=== PATIENT | female | born 1985 | race African-American/Black ===

== ENCOUNTER 2020-10-31 14:14 | Outpatient (REF) | payer MEDICAID, SELFPAY ==
--- NOTE | 2020-10-31 | US_ITS ---
EXAMINATION: OBSTETRICAL ULTRASOUND, FIRST TRIMESTER HISTORY: 35-year-old with secondary amenorrhea LMP: Uncertain COMPARISON: 03/20/2020 TECHNIQUE: Real time transabdominal imaging with color and M-mode Doppler. FINDINGS: A single, live IUP CRL of 70.2 mm c/w 13.2wks is noted. Heart Rate: 152 beats per minute. Both maternal ovaries are seen and appear normal. GESTATIONAL AGE: 1. GA from LMP: N/A wks 2. GA from AUA: 13.2 wks ESTIMATED DATE OF DELIVERY: 1. MIGUEL from LMP: N/A 2. MIGUEL from AUA: 05/06/2021 US/US OB <= 14 weeks fetus IMPRESSION: 1. A single live IUP with CRL consistent with 13.2 weeks of gestation. Based on today's examination, the best MIGUEL is 05/06/2021. 2. Normal ovaries 3. No free fluid in the cul-de-sac
== END 2020-10-31 14:15 | disposition home or self-care (01) ==
LOC: HO.HMGCX 14:14
PROVIDERS: PCP Nurse Practitioner Family; Visit Provider Advanced Practice Midwife
DX: Z36.87 Encounter for antenatal screening for uncertain dates (principal)
CPT/HCPCS: 76801

== ENCOUNTER → 2021-10-14 13:15 | Outpatient (REF) | payer MEDICAID, SELFPAY | LOC: HO.CARD 13:15 | PROVIDERS: PCP General Practice; Referring Provider General Practice; Visit Provider Internal Medicine | DX: R00.2 Palpitations (principal); R06.02 Shortness of breath; U07.1 COVID-19 | CPT/HCPCS: 93005; 99202 ==

== ENCOUNTER 2022-05-18 03:50 | Emergency (ER) | payer MEDICAID, SELFPAY ==
[2022-05-18 04:20] VITALS: BP 137/80; PULSE 94; RESP 16; TEMP 37.2; O2SAT 96; BMI 27.8
[2022-05-18] MEDS: diphenhydrAMINE HCL 50 MG/ML VIAL IM (04:51)
--- NOTE | 2022-05-18 05:06 | ED_ITS ---
HPI - General Adult General Chief complaint: Allergic Reaction Stated complaint: legs, arms, neck rash, itchy Time Seen by Provider: 05/18/22 04:43 Source: patient Limitations: no limitations History of Present Illness HPI narrative: This is a 36-year-old female who complains of hives on her thighs and generalized pruritus which began this morning. The patient is on Bactrim for UTI. She has been on it for about 5 days, though she had been on a previous to this recently and was treated again for UTI. She states she also was prescribed amoxicillin for a tooth which she needs to have old but has not filled that yet. Patient denies any tongue or lip swelling, throat tightness, shortness of breath, wheezing. She denies any gum swelling, does have dental pain. Related Data Previous Rx's Medication Instructions Recorded diphenhydramine HCl 25 mg capsule 25 - 50 mg PO Q6-8H PRN allergic 05/18/22 reaction #30 caps Allergies Allergy/AdvReac Type Severity Reaction Status Date / Time Sulfa (Sulfonamide Allergy Rash Verified 05/18/22 05:20 Antibiotics) Review of Systems Review of Systems: Yes all other systems are reviewed and are negative Constitutional: Constitutional: Reports as per HPI and Denies fever(s) Eyes: Eyes: Reports as per HPI and Reports no additional eye complaints ENT: Reports system reviewed and no additional complaints, except as documented, Reports as per HPI, Denies nasal congestion, Denies nasal discharge and Denies sore throat Comments: Dental pain Cardiovascular: Cardiovascular: Reports as per HPI, Denies chest pain and Denies dyspnea Respiratory: Respiratory: Reports as per HPI, Denies cough and Denies dyspnea Gastrointestinal: Gastrointestinal: Reports as per HPI, Denies abdominal pain, Denies diarrhea and Denies vomiting Genitourinary: Genitourinary: Reports as per HPI, Denies hematuria, Denies urinary frequency and Denies dysuria Musculoskeletal: Musculoskeletal: Reports no additional musculoskeletal complaints Integumentary/Breasts: Skin/Breast: Reports as per HPI and Reports rash Comments: Pruritus Psychiatric: Psychiatric: Reports no additional psychiatric complaints Endocrine: Endocrine: Reports no additional endocrine complaints and Reports as per HPI Hematologic/Lymphatic: Hematologic/Lymphatic: Reports no additional hematologic/lymphatic complaints, Reports as per HPI and Reports other (No peripheral edema) [facility] Past Medical History Surgical History (Updated 10/14/21 @ 13:34 by REECE Caballero) No pertinent past surgical history Family History Family History (Updated 10/14/21 @ 13:34 by REECE Caballero) Father Heart disease Mother Heart disease Social History Social History (Updated 10/14/21 @ 13:34 by REECE Caballero) Patient Tobacco Use Status: Never used Tobacco Advance Directives: No Physical Exam ED Vital Signs: Vital Signs - 24 hr 05/18/22 04:20 Temperature 98.9 F Pulse Rate 94 Respiratory Rate 16 Blood Pressure 137/80 Pulse Oximetry 96 Oxygen Delivery Method Room Air BMI result Body Mass Index 27.8 Const General: no acute distress Orientation/consciousness: patient oriented x3 HENMT Head: Yes normal to inspection General nose exam: Normal external nose present Mouth: moist mucous membranes Throat: Yes posterior oropharynx normal, Yes tonsils normal and Yes uvula midline Eyes Eyelids: Yes eyelids normal Conjunctivae: conjunctivae normal Pupils: Equal, round and reactive pupils present Neck Neck: Yes supple Resp Effort & Inspection: normal respiratory effort Auscultation: clear to auscultation bilaterally Cardio Rate: regular rate Rhythm: regular rhythm Heart sounds: S1 normal heart sound present, S2 normal heart sound present, no gallops, no murmurs and no rubs GI Inspection: No distended Palpation (GI): Soft to palpation and nontender Auscultation: normal bowel sounds Skin Other: Mild urticaria General skin exam: other (Warm and dry) Neuro General: patient oriented x3 and CN's II-XI intact bilaterally Cranial nerves: Yes Equal, round and reactive pupils present Extrem General: Yes no pedal edema Psych Affect: normal affect Attitude: cooperative Medical Decision Making [facility] Narrative Medical decision making narrative: Patient was treated with Benadryl 50 mg IM and had improvement in her symptoms, noted that the pruritus went away. Patient is advised to stop the trimethoprim/sulfamethoxazole and consider herself sulfa allergic. She can start the amoxicillin for her dental pain. Given that she has already had the Bactrim for 5 days, she can have already had sufficient antibiotics for UTI. Recommend follow-up with primary care physician for repeat urinalysis in a week Discharge Plan Discharge Clinical Impression: Allergic reaction, Urticaria Patient Disposition: Home, Self-Care Instructions: Urticaria (ED), Antibiotic Medication Allergy (ED) Additional Instructions: Stop taking the trimethoprim/sulfamethoxazole, and consider yourself allergic to sulfa medications. Start the amoxicillin as prescribed previously. Use the diphenhydramine as prescribed Prescriptions: New diphenhydramine HCl 25 mg capsule 25 - 50 mg PO Q6-8H PRN (Reason: allergic reaction) Qty: 30 0RF Interventions: ED Discharge Assessment Last Done: 05/18/22 05:20 Discharge Date/Time: 05/18/22 05:40
--- NOTE | 2022-05-18 05:22 | PC.NURSE ---
pt reports good effect from benadryl. decreased itching/ pt ambulatory upon d/c with no complaints
== END 2022-05-18 05:40 | disposition home or self-care (01) ==
LOC: HO.ED 05:22
PROVIDERS: Emergency Provider Emergency Medicine
DX: L50.0 Allergic urticaria (principal)
CPT/HCPCS: 96372; 99284; J1200

== ENCOUNTER 2024-07-24 18:36 | Outpatient (REF) | payer MEDICAID, SELFPAY ==
[2024-07-25 12:17] LABS: CT PCR NOT DETECTED (Not Detect.); NG PCR NOT DETECTED (Not Detect.)
[2024-07-25 13:53] LABS: Bacterial Vaginosis PCR POSITIVE (Negative); Candida Group PCR NOT DETECTED (Not Detect); Candida glab krusei PCR NOT DETECTED (Not Detect); Trichomonas vaginalis PCR NOT DETECTED (Not Detect)
== END 2024-07-24 18:37 | disposition home or self-care (01) ==
LOC: HO.HHCLNP 18:36
PROVIDERS: Visit Provider Nurse Practitioner Family
DX: N89.8 Other specified noninflammatory disorders of vagina (principal)
CPT/HCPCS: 0352U; 87491; 87591

== ENCOUNTER 2025-07-09 14:58 | Outpatient (REF) | payer MEDICAID, SELFPAY ==
[2025-07-10 12:59] LABS: Bacterial Vaginosis PCR NEGATIVE (Negative); Candida Group PCR DETECTED (Not Detect); Candida glab krusei PCR NOT DETECTED (Not Detect); Trichomonas vaginalis PCR NOT DETECTED (Not Detect)
[2025-07-10 13:30] LABS: CT PCR NOT DETECTED (Not Detect.); NG PCR NOT DETECTED (Not Detect.)
== END 2025-07-09 14:59 | disposition home or self-care (01) ==
LOC: HO.LNP 14:58
PROVIDERS: Visit Provider Internal Medicine
DX: Z20.2 Contact with and (suspected) exposure to infections with a predominantly sexual mode of transmission (principal); L72.0 Epidermal cyst; N89.8 Other specified noninflammatory disorders of vagina
CPT/HCPCS: 81515; 87491; 87591

== ENCOUNTER 2025-08-27 11:15 | Outpatient (AMB) | payer MEDICAID, SELFPAY ==
--- NOTE | 2025-08-27 11:23 | MHC.OFFVIS ---
Vital Signs 08/27/25 11:29 Height 5 ft 2 in Weight 175 lb BMI 32.0 BP 143/83 H Blood Pressure Location Rt radial Position Sitting Pulse 92 Intake Visit Reasons: Epidermoid cyst of scalp x3 Intake Note: Patient referred by PCP Dr. Rissa Talavera, for assessment of cysts X3 on scalp. Patient c/o: painful, bothersome. Had cysts removed yrs ago but they grew back. Creative/Art Director Required: No Accompanied by: Self / Same As Patient Allergies Sulfa (Sulfonamide Antibiotics) Allergy (Verified 08/27/25 11:27) Rash Medication List - Last Reconciled 08/27/25 by Abundio Davis MD No Known Home Meds HPI Comments Details: Patient reports a history of Pilar cyst excision x3 in the past. She notes that 2 of them have returned and they become large and bothersome. She desires repeat excision of these. She denies any other trauma or instrumentation to the region. [facility] Surgical History (Updated 10/14/21 @ 13:34 by REECE Caballero) No pertinent past surgical history Family History (Updated 10/14/21 @ 13:34 by REECE Caballero) Father Heart disease Mother Heart disease Social History (Updated 10/14/21 @ 13:34 by REECE Caballero) Patient Tobacco Use Status: Never used Tobacco Review of Systems Const All systems reviewed & are unremarkable except as noted in HPI and below Physical Exam Vital Signs: Last Vital Signs Pulse 92 08/27/25 11:29 BP 143/83 H 08/27/25 11:29 BMI result Body Mass Index 32.0 Const General: cooperative, healthy appearing and comfortable Orientation/consciousness: oriented to person, oriented to place and oriented to time HEENT Head: Yes normal to inspection and Yes normocephalic Head images:  1. 3-4 cm cyst 2. 2-3 cm cyst Eyes Pupils: Equal, round and reactive pupils present EOM: EOMs intact bilaterally Neck Neck: Yes normal visual inspection Chest Chest palpation & inspection: normal inspection of the chest Resp Effort & Inspection: normal respiratory effort and able to speak in complete sentences Cardio Rate: regular rate Rhythm: regular rhythm GI Inspection: Yes normal to inspection General: Yes no CVA tenderness Back/Spine/Pelvis Back: no CVA tenderness Cervical Spine: normal cervical lordosis Thoracic/Lumbar Spine: thoracic and lumbar spine normal to inspection Neuro General: oriented to person, oriented to place and oriented to time Cranial nerves: Yes CN's II-XII intact bilaterally and Yes Equal, round and reactive pupils present Assessment & Plan Assessment & Plan (1) Pilar cyst of scalp: Code(s): L72.11 - Pilar cyst Category: Medical Plan: I told the patient I felt that excision of her 2 pilar cysts was reasonable. We discussed the nature of the procedure as well as the inherent risks involved. These include but are not limited to bleeding, infection, recurrence, scarring, chronic pain. She indicated that she understood. She told me that she accepted the risks and still wished to proceed with surgery. Coding Level of Care Code New Pt Level 3 (93274) Diagnoses Pilar cyst of scalp L72.11 Time Spent (min) 30
[2025-08-27 11:29] VITALS: BP 143/83; PULSE 92; BMI 32.0
--- OUTSIDE RECORDS SUMMARY | 2025-08-27 14:54 | XMS_ITS | Clinical Summary ---
Author Organization [address] [place] [address] [place] [phone] Phone Care Team Providers Care Stereoptician Name Role Phone Wilbert Brown MD Primary Care Provider Allergies No known active allergies Active Problems No known active problems Encounters Date Type Department Care Team Description 07/11/2025 3:48 PM EDT - 07/11/2025 4:35 PM EDT Emergency [facility] Emergency [address] [place] [address] Trung Anaya MD Concussion without loss of consciousness, initial encounter (Primary Dx) Discharge Disposition: Home or Self Care from Last 3 Months Medical History Medical History Date Comments No known health problems Social History Tobacco Use Types Packs/Day Years Used Date Smoking Tobacco: Never Smokeless Tobacco: Never Tobacco Cessation:Counseling Given: Not Answered Comments Unknown Sex and Gender Information Value Date Recorded Sex Assigned at Not on file Legal Sex Female 1:13 PM EST Gender Identity Not on file Sexual Orientation Not on file Obstetrics History Last Filed Vital Signs Vital Sign Reading Time Taken Comments Blood Pressure 145/96 07/11/2025 3:43 PM EDT Pulse 103 07/11/2025 3:43 PM EDT Temperature 36.9 C (98.4 F) 07/11/2025 3:43 PM EDT Respiratory Rate 16 07/11/2025 3:43 PM EDT Oxygen Saturation 100% 07/11/2025 3:43 PM EDT Inhaled Oxygen Concentration - - Weight 79.4 kg (175 lb) 07/11/2025 3:39 PM EDT Height 154.9 cm (5' 1 ) 07/11/2025 3:39 PM EDT Body Mass Index 33.07 07/11/2025 3:39 PM EDT Plan of Treatment Health Maintenance Due Date Last Done Comments Breast Cancer Screening 1985 Pneumococcal Vaccine: Pediatrics (0 to 5 Years) and At-Risk Patients (6 to 49 Years) (1 of 2 - PCV) 2004 Cervical Cancer Screening: Pap Smear 2006 HPV Vaccines (1 - 3-dose SCDM series) 2012 HIV Screening 08/31/2022 Hepatitis C Screening 08/31/2022 Social Influencers of Health Screening 08/31/2022 Depression Screening 10/03/2024 COVID-19 Vaccine ( season) 2025 Influenza Vaccine (#1) 2025 09/13/2019, 2016 DTaP,Tdap,and Td Vaccines (8 - Td or Tdap) 08/15/2027 08/15/2017, 09/17/1999, 07/25/1990, Additional history exists RSV Immunization Adult Patients (1 - 1-dose 75+ series) 2060 HIB Vaccines Completed 10/14/1988 IPV Vaccines Completed 07/25/1990, 02/01, 01/04/1986, Additional history exists MMR Vaccines Completed 06/23/1995, 02/19/1987 Hepatitis B Vaccines Completed 07/13/2000, 11/20/1999, 09/17/1999 Hepatitis A Vaccines Aged Out No long er eligible based on patient's age to complete this topic Meningococcal ACWY Vaccine Aged Out N o longer eligible based on patient's age to complete this topic Meningococcal B Vaccine Aged Out No l onger eligible based on patient's age to complete this topic RSV Immunization Patients Under 20 months Aged Out No longer eligible based on patient's age to complete this topic Varicella Vaccines Aged Out No longer eligible based on patient's age to complete this topic Insurance MEDICAID - [place] Care Teams Stereoptician Relationship Specialty Start Date End Date Wilbert Brown MD [address] [facility], [address] PCP - General 03/24/10
--- OUTSIDE RECORDS SUMMARY | 2025-08-27 14:54 | XMS_ITS | Encounter Summary ---
Author Organization [employer] Address [address] [facility] [address] [place] [address] Care Team Providers Care Checkout Supervisor Name Role Phone Becky Mai MD Primary Care Provider [phone] Encounter Details Date Type Department Care Team (Late st Contact Info) Description 07/25/2024 Orders Only [facility] [address], [place] [phone] Araseli Bernal FNP [address], [place] [phone] Social History Tobacco Use Types Packs/Day Years Used Date Smoking Tobacco: Never Passive Smoke Exposure: Never Smokeless Tobacco: Never Alcohol Use Standard Drinks/Week Comments Never 0 (1 standard drink = 0.6 oz pur e alcohol) Comments Unknown Sex and Gender Information Value Date Recorded Sex Assigned at Female 08/02/2022 10:15 AM EDT Legal Sex Female 10:15 AM EDT Gender Identity Female 08/02/2022 10:15 AM EDT Sexual Orientation Choose not to disclose 2021 10:15 AM EDT documented as of this encounter Plan of Treatment Not on file documented as of this encounter Visit Diagnoses Not on filedocumented in this encounter Care Teams Checkout Supervisor Relationship Specialty Start Date End Date Becky Mai MD [address] [place] [address] PCP - General Family Medicine 06/02/20 documented as of this encounter
--- OUTSIDE RECORDS SUMMARY | 2025-08-27 14:54 | XMS_ITS | Clinical Summary ---
Author Organization [employer] Address [address] [facility] 7t [place] [address] Care Team Providers Care Sword Swallower Name Role Phone Becky Mai MD Primary Care Provider [phone] Allergies No known active allergies Medications No known medications Active Problems Problem Noted Date Diagnosed Date Epidermoid cyst 07/09/2025 Vaginal odor 07/09/2025 Assessment & Plan (07/09/2025 4:25 PM EDT): Patient will be contacted with results Vaginal discharge during 03/26/2023 Assessment & Plan (03/26/2023 9:21 PM EDT): Pt w scant vaginal discharge and per pt abnormal smell. No vaginal bleeding. Nl mvmts per pt. No sx. -Here urine dipstick is neg w no blood, neg protein, no nitrates, nor LE. -Pt obtained vaginal sample (self-collected), sent today for Sure Swab testing. -Start empirically intravaginal metronidazole gel for 5 d -will call pt if neg test to stop antibiotic -Advise pt f u w her OBGYN -Alarm signs and sx discussed Elevated blood pressure reading 03/26/2023 Assessment & Plan (03/26/2023 9:27 PM EDT): Initially BP was in 150s, but pt was visibly agitated due to conversation on the phone which she didn't detail, however after rechecking manually, was BP manually RA 142/80 AND LA 138/80 -Rechecked 136/80 Pt denies having elevated BP readings at drs apptmts -Advise to f up w her OBGYN to continue following BP -Pt has apt w her CUTTING MACHINE OPERATOR in 04/14/2023 But advised to scheduled earlier visit to f BP -HR improved after recheck 01/31/2023 Anxiety 01/31/2023 Reflux esophagitis 01/31/2023 Sickle cell trait 01/31/2023 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 Treatment options are limited. History of severe acute resp iratory syndrome coronavirus 2 (SARS-CoV-2) disease 06/11/2021 Gastroenteritis 07/04/2018 Resolved Problems Problem Noted Date Diagnosed Date Resolved Date Acute contact otitis externa 09/24/2022 01/31/2023 Encounters Date Type Department Care Team Description 07/11/2025 Results Follow-Up [facility] [address] [place] [phone] Marina Liang MD Bacterial Vaginosis Panel, Chlamydia/N. Gonorrhoeae RNA, TMA, Vaginal 07/11/2025 Orders Only [facility] [address] [place] [id number] Marina Liang MD Yeast infection (Primary Dx) 07/09/2025 2:40 PM EDT Office Visit [facility] [address] [place] [phone] Marina Liang MD Vaginal odor (Primary Dx); Epidermoid cyst 07/09/2025 Travel from Last 3 Months Immunizations Immunization Administration Dates Next Due DTaP, 5 pertussis antigens 07/25/1990,,03/06/1986,1985,1985 Hep B, Adolescent or Pediatric 07/13/2000,1999,09/17/1999 Hib ([facility]) 10/14/1988 Influenza injectable quadriv alent IIV4 with preservative 08/15/2017 Influenza injectable quadriv alent preservative free 09/13/2019 MMR 06/23/1995,02/19/1987 OPV, Trivalent 07/25/1990, 7,01/04/1986,1985 TD (adult), 2 Lf tetanus tox oid, preservative free, adsorbed 09/17/1999 Tdap 08/15/2017 Social History Tobacco Use Types Packs/Day Years Used Date Smoking Tobacco: Never Passive Smoke Exposure: Never Smokeless Tobacco: Never Tobacco Cessation:Counseling Given: Not Answered Alcohol Use Standard Drinks/Week Comments Never 0 (1 standard drink = 0.6 oz pur e alcohol) Comments Unknown Sex and Gender Information Value Date Recorded Sex Assigned at Female 08/02/2022 10:15 AM EDT Legal Sex Female 10:15 AM EDT Gender Identity Female 08/02/2022 10:15 AM EDT Sexual Orientation Choose not to disclose 2021 10:15 AM EDT Last Filed Vital Signs Vital Sign Reading Time Taken Comments Blood Pressure 138/84 07/09/2025 4:23 PM EDT Pulse 110 07/09/2025 2:21 PM EDT Temperature 35.2 C (95.3 F) 07/09/2025 2:21 PM EDT Respiratory Rate 16 07/09/2025 2:21 PM EDT Oxygen Saturation 97% 07/09/2025 2:21 PM EDT Inhaled Oxygen Concentration - - Weight 90.2 kg (198 lb 12.8 oz) 07/09/2025 2:21 PM EDT Height 154.9 cm (5' 1 ) 07/09/2025 2:21 PM EDT Body Mass Index 37.56 07/09/2025 2:21 PM EDT Plan of Treatment Health Maintenance Due Date Last Done Comments Depression Screening 1985 HIV Screening 1985 Lipid Panel 1985 SDOH Screening 1985 Disability Screening 1985 Alcohol/Substance Use Screening 1997 Family Planning (PISQ) 2000 HPV Vaccines (1 - 3-dose series) 2000 Hepatitis C Screening 2003 COVID-19 Vaccine ( season) 2025 Influenza Vaccine (#1) 2025 09/13/2019, 2016 Mammogram 2025 03/20/2020 Tobacco Screening 07/09/2026 07/09/2025 Cervical Cancer Screening 07/10/2026 HPV/Cotest 07/10/2026 07/10/2021 Pap Smear 07/10/2026 07/10/2021 DTaP/Tdap/Td Vaccines (8 - Td or Tdap) 05/10/2033 05/10/2023, 08/15/2017, 09/17/1999, Additional history exists Zoster Vaccines (1 of 2) 2035 RSV Patients and Patients Aged 60 years or older (1 - 1-dose 75+ series) 2060 HIB Vaccines Completed 10/14/1988 IPV Vaccines Completed 07/25/1990, 02/01, 01/04/1986, Additional history exists Hepatitis B Vaccines Completed 07/13/2000, 11/20/1999, 09/17/1999 Hepatitis A Vaccines Aged Out No long er eligible based on patient's age to complete this topic Meningococcal B Vaccine Aged Out No l onger eligible based on patient's age to complete this topic Meningococcal Vaccine Aged Out No josé manuel anderson eligible based on patient's age to complete this topic Pneumococcal Vaccine: Pediatrics (0 to 5 Years) and At-Risk Patients (6 to 49) Years Aged Out No longer eligible based on patient's age to complete this topic RSV under 20 months Aged Out No longe r eligible based on patient's age to complete this topic Rotavirus Vaccines Aged Out No longer eligible based on patient's age to complete this topic Procedures Procedure Name Priority Date/Time Associated Diagnosis Comments CHLAMYDIA/N. GONORRHOEAE RNA, TMA, UROGENITAL Routine 07/09/2025 2:58 PM EDT Epidermoid cyst Vaginal odor BACTERIAL VAGINOSIS PANEL Routine 07/09/2025 2:58 PM EDT Epidermoid cyst Vaginal odor HPV MRNA E6/E7 REFLEX TO HPV 16, 18/45 Routine 07/10/2021 4:16 PM EDT THINPREP IMAGING SYSTEM PAP Routine 07/10/2021 4:16 PM EDT BI MAMMOGRAM DIAGNOSTIC BILATERAL Routine 03/20/2020 11:34 AM EDT from Last 3 Months or Most Recently Relevant to Health Maintenance Results * (ABNORMAL) Bacterial Vaginosis Panel (07/09/2025 2:58 PM EDT) Pathologist [facility] TRICHOMONAS VAGINALIS DETECTION BY PCR NOT DETECTED Not Detect [facility] BACTERIAL VAGINOSIS DETECTION BY PCR NEGATIVE Negative [facility] Comment:The BV organism targ ets of the Xpert Xpress MVP test can becommensal in women; Xpert Xpress MVP positive results forbacterial vaginosis should be considered in conjunction withother clinical and patient information to determine thedisease status. Organisms that are not detected by the XpertXpress MVP test have also been reported to be associatedwith BV and aerobic vaginitis.The Xpert Xpress MVP test performance has not been evaluatedin patients under the age of 14. KAYLIN GROUP DETECTION BY PCR DETECTED(A) Not Detect [facility] Kaylin glab krusei PCR NOT DETECTED Not Detect [facility] Swab Vaginal structure / Unknown 07/09/2025 2:58 PM EDT 07/10/2025 11:52 AM EDT Marina Talavera MD LAB MICROBIOLOGY - [facility] ORDERABLES Final Result [facility] [address] [place] [phone] * Chlamydia/N. Gonorrhoeae RNA, TMA, Vaginal (07/09/2025 2:58 PM EDT) Pathologist [facility] CT PCR NOT DETECTED Not Detect. [facility] Comment:A not detected test result does not exclude the possibilityof infection because test results can be affected byimproper specimen collection, concurrent antibiotic therapy,or the number of organisms in the specimen which may bebelow the sensitivity of the test. As with many diagnostictests, results from the Xpert CT/NG assay should beinterpreted in conjunction with other laboratory andclinical data available to the clinician.Xpert CT/NG performance has not been evaluated in patientsless than 14 years of age. The assay should not be used forthe evaluationof suspected sexual abuse or for other medico-legalindications. Additional testing is recommended in anycircumstance when false positive or false negative resultscould lead to adverse medical, social or psychologicalconsequences. NG PCR NOT DETECTED Not Detect. [facility] Comment:A not detected test result does not exclude the possibilityof infection because test results can be affected byimproper specimen collection, concurrent antibiotic therapy,or the number of organisms in the specimen which may bebelow the sensitivity of the test. As with many diagnostictests, results from the Xpert CT/NG assay should beinterpreted in conjunction with other laboratory andclinical data available to the clinician.Xpert CT/NG performance has not been evaluated in patientsless than 14 years of age. The assay should not be used forthe evaluationof suspected sexual abuse or for other medico-legalindications. Additional testing is recommended in anycircumstance when false positive or false negative resultscould lead to adverse medical, social or psychologicalconsequences. Swab (Vaginal Swab) 07/09/2025 2:58 PM EDT 07/10/2025 11:52 AM EDT Marina Talavera MD LAB MICROBIOLOGY - [facility] ORDERABLES Final Result [facility] [address] [place] [phone] * THINPREP TIS PAP (07/10/2021 4:16 PM EDT) Clinical Information: None given [facility] COMMENT SEE COMMENT [facility] Comment: EXPLANATORY NOTE: The Pap is a screening test for cervical cancer. It is not a diagnostic test and is subject to false negative and false positive results. It is most reliable when a satisfactory sample, regularly obtained, is submitted with relevant clinical findings and history, and when the Pap result is evaluated along with historic and current clinical information. COMMENT: This Pap test has been evaluated with computer assisted technology. [facility] Nail Expert : SEE COMMENT [facility] Comment: RK, CT(ASCP) CT screening location: [place] [address] Infection Shift in vaginal jasiel suggestive of bacterial vaginosis. [facility] Interpretation/R esult: Negative for intraepithelial lesion or malignancy. [facility] LMP: NONE [facility]IVEN [facility] Prev. BX: NONE [facility]IVEN [facility] Prev. PAP: NONE GIVEN [facility] SOURCE: None given [facility] Statement Of Adequacy: SEE COMMENT [facility] Comment: Satisfactory for evaluation. Endocervical/transformation zone component present. Age and/or menstrual status not provided 07/10/2021 4:16 PM EDT Becky Mai MD LAB PATHOLOGY ORDERABLES Final Result Performing Organization Address [facility] Co de Phone Number [facility] [address] * HPV mRNA E6/E7 REFLEX TO HPV 16, 18/45 (07/10/2021 4:16 PM EDT) HPV nRNA E6/E7 Not Detected Not Detected [facility] Comment: Methodology: Icer Hand-Mediated Amplification This assay detects E6/E7 viral messenger RNA (mRNA) from 14 high-risk HPV types (16,18,31,33,35,39,45,51,52,56,58,59,66,68). The analytical performance characteristics of this assay have been determined by [employer]. The modifications have not been cleared or approved by the FDA. This assay has been validated pursuant to the CLIA regulations and is used for clinical purposes. For additional information, please refer to http://education.[employer].Wylio/faq/BWT333x9 (This link if provided for information/ educational purposes only.) 07/10/2021 4:16 PM EDT Becky Mai MD LAB CYTOLOGY ORDERABLES Final Result Performing Organization Address [facility] Co de Phone Number [facility] [address] * 3D BILATERAL DIAGN MAMMO 1 (03/20/2020 11:34 AM EDT) Anatomical Region Laterality Modality Breast Bilateral Mammography 03/20/2020 11:3 4 AM EDT Narrative 03/20/2020 11:36 AM EDT Refer to the Notes tab for result details [facility] Procedure: 3D BILATERAL DIAGN MAMMO 1 Procedure Note Provider, MD [place] - 12/25/2022 Refer to the Notes tab for result details [facility] Procedure: 3D BILATERAL DIAGN MAMMO 1 Konstantin Soto FISCAL OFFICER IMG BI PROCEDURES Final Result from Last 3 Months or Most Recently Relevant to Health Maintenance Insurance C3 Care Teams Sword Swallower Relationship Specialty Start Date End Date Becky Mai MD [address] [place] [phone] PCP - General Family Medicine 06/02/20
== END 2025-08-27 11:35 | disposition home or self-care (01) ==
LOC: HO.HGS 11:15
PROVIDERS: PCP Internal Medicine; Visit Provider Surgery
DX: L72.11 Pilar cyst (principal)
CPT/HCPCS: 99203

== ENCOUNTER → 2025-08-27 11:15 | Outpatient (BNVA) | payer MEDICAID, SELFPAY | PROVIDERS: PCP Internal Medicine; Visit Provider Surgery | DX: Z01.818 Encounter for other preprocedural examination (principal); L72.11 Pilar cyst | CPT/HCPCS: 99202 ==

== ENCOUNTER 2025-09-13 13:46 | Outpatient (REF) | payer MEDICAID, SELFPAY ==
[2025-09-13 13:52] VITALS: BP 138/79; PULSE 93; RESP 18; O2SAT 98; BMI 31.1
--- NOTE | 2025-09-13 14:35 | W.PM.OPN ---
Operative Note Operative Note Date of Service: 09/13/25 Narrative: Preoperative diagnosis pilar cyst x2 Postoperative diagnosis pilar cyst x2 Procedure performed excision of pilar cyst x2 Anesthesia local infiltration Specimen: Pilar cyst approximately 2 cm in diameter and another pilar cyst approximately 1 cm in diameter Surgeon: Abundio Davis MD The patient was identified and time-out was performed. Her scalp was then prepped and draped in standard sterile fashion. After this was done approximately 20 cc of 0.25% Marcaine with epinephrine were infused around the skin and soft tissues of two previously identified and marked pilar cysts. Over the cyst stab incision was created 15. Blade and a pearly round cystic structure was completely mobilized from the surrounding soft tissue attachments with a combination of blunt and sharp dissection at each incision site. Both cysts were mobilized and passed off table as a specimen. Hemostasis was excellent. The skin at both sites was closed with 4-0 Polysorb in a buried subcuticular fashion. Bacitracin ointment was then applied. The patient tolerated procedure well. There reviewed the details of the case with her and also reviewed with her instructions for her postoperative care and follow-up.
--- OUTSIDE RECORDS SUMMARY | 2025-09-13 19:13 | XMS_ITS | Clinical Summary ---
Author Organization [address] [place] [address] [place] [phone] Phone Care Team Providers Care Capsule Filling Machine Operator Name Role Phone Wilbert Brown MD Primary Care Provider Allergies No known active allergies Active Problems No known active problems Encounters Date Type Department Care Team Description 07/11/2025 3:48 PM EDT - 07/11/2025 4:35 PM EDT Emergency [facility] Emergency [address] [place] [phone] Trung Anaya MD Concussion without [...] on file Sexual Orientation Not on file Last Filed Vital Signs Vital Sign Reading [...] to complete this topic Insurance MEDICAID - [place] Care Teams Capsule Filling Machine Operator Relationship Specialty Start Date End Date Wilbert Brown MD [address] [facility], [phone] PCP - General 03/24/10
--- OUTSIDE RECORDS SUMMARY | 2025-09-13 19:13 | XMS_ITS | Encounter Summary ---
Author Organization [employer] Address [address] [facility] 7t [place] [address] Care Team Providers Care Senior Graduate Advisor Name Role Phone Becky Mai MD Primary Care Provider [phone] Encounter Details Date Type Department Care Team (Late st Contact Info) Description 07/25/2024 Orders Only [facility] [address] [place], [place] [phone] Araseli Bernal FNP [address] [place], [place] [phone] Social History Tobacco Use Types Packs/Day Years [...] on filedocumented in this encounter Care Teams Senior Graduate Advisor Relationship Specialty Start Date End Date Becky Mai MD [address] [place] [address] PCP - General Family Medicine 06/02/20 documented as of this encounter
--- OUTSIDE RECORDS SUMMARY | 2025-09-13 19:13 | XMS_ITS | Clinical Summary ---
Author Organization [employer] Address [address] [facility] 7t [place] [address] Care Team Providers Care Admitting Office Escort Name Role Phone Becky Mai MD Primary Care Provider [phone] Allergies No known active allergies Medications No [...] following BP -Pt has apt w her TECHNICAL WRITER in 04/14/2023 But advised to scheduled earlier [...] Department Care Team Description 07/11/2025 Results Follow-Up [facility] [address] [place] [phone] Marina Liang MD Bacterial Vaginosis Panel, Chlamydia/N. Gonorrhoeae RNA, TMA, Vaginal 07/11/2025 Orders Only [facility] [address] [place] [phone] Marina Liang MD Yeast infection (Primary Dx) 07/09/2025 2:40 PM EDT Office Visit [facility] [address] [place] [phone] Marina Liang MD Vaginal odor (Primary Dx); Epidermoid cyst 07/09/2025 Travel from Last 3 Months Immunizations Immunization Administration Dates Next Due DTaP, 5 pertussis antigens 07/25/1990,,03/06/1986,1985,1985 Hep B, Adolescent or Pediatric 07/13/2000,1999,09/17/1999 Hib ([facility]) 10/14/1988 Influenza injectable quadriv alent IIV4 with [...] Vaginosis Panel (07/09/2025 2:58 PM EDT) Pathologist [facility] TRICHOMONAS VAGINALIS DETECTION BY PCR NOT DETECTED Not Detect [facility] BACTERIAL VAGINOSIS DETECTION BY PCR NEGATIVE Negative [facility] Comment:The BV organism targ ets [...] GROUP DETECTION BY PCR DETECTED(A) Not Detect [facility] Kaylin glab krusei PCR NOT DETECTED Not Detect [facility] Swab Vaginal structure / Unknown 07/09/2025 2:58 PM EDT 07/10/2025 11:52 AM EDT Marina Talavera MD LAB MICROBIOLOGY - [facility] ORDERABLES Final Result [facility] [address] [place] [phone] * Chlamydia/N. Gonorrhoeae RNA, TMA, Vaginal (07/09/2025 2:58 PM EDT) Pathologist [facility] CT PCR NOT DETECTED Not Detect. [facility] Comment:A not detected test result [...] psychologicalconsequences. NG PCR NOT DETECTED Not Detect. [facility] Comment:A not detected test result [...] EDT Marina Talavera MD LAB MICROBIOLOGY - [facility] ORDERABLES Final Result [facility] [address] [place] [phone] * THINPREP TIS PAP (07/10/2021 4:16 PM EDT) Clinical Information: None given [facility] COMMENT SEE COMMENT [facility] [...] along with historic and current clinical information. Comment: This Pap test has been evaluated with computer assisted technology. [facility] Information Technology Instructor : SEE COMMENT [facility] Comment: RK, CT(ASCP) CT screening location: [place] [address] Infection Shift in vaginal jasiel suggestive of bacterial vaginosis. [facility] Interpretation/R esult: Negative for intraepithelial lesion or malignancy. [facility] LMP: NONE GIVEN [facility] Prev. BX: NONE GIVEN [facility] Prev. PAP: NONE GIVEN [facility] SOURCE: None given [facility] Statement Of Adequacy: SEE COMMENT [facility] Comment: Satisfactory for evaluation. Endocervical/transformation zone component present. Age and/or menstrual status not provided 07/10/2021 4:16 PM EDT Becky Mai MD LAB PATHOLOGY ORDERABLES Final Result Performing Organization Address [facility] Co de Phone Number [facility] [address] * HPV mRNA E6/E7 REFLEX TO HPV 16, 18/45 (07/10/2021 4:16 PM EDT) HPV nRNA E6/E7 Not Detected Not Detected [facility] Comment: Methodology: Retirement Actuary-Mediated Amplification This assay detects E6/E7 viral messenger RNA (mRNA) from 14 high-risk HPV types (16,18,31,33,35,39,45,51,52,56,58,59,66,68). The analytical performance characteristics of this assay have been determined by [employer]. The modifications have not been cleared or approved by the FDA. This assay has been validated pursuant to the CLIA regulations and is used for clinical purposes. For additional information, please refer to http://education.[employer]yle.[employer]e LTD/faq/INI337t4 (This link if provided for information/ educational purposes only.) 07/10/2021 4:16 PM EDT Becky Mai MD LAB CYTOLOGY ORDERABLES Final Result Performing Organization Address [facility] Co de Phone Number [facility] [address] * 3D BILATERAL DIAGN MAMMO 1 [...] 3D BILATERAL DIAGN MAMMO 1 Konstantin Soto SOURCING CONSULTANT IMG BI PROCEDURES Final Result from Last 3 Months or Most Recently Relevant to Health Maintenance Insurance C3 Care Teams Admitting Office Escort Relationship Specialty Start Date End Date Becky Mai MD [address] [place] [phone] PCP - General Family Medicine 06/02/20
== END 2025-09-13 13:47 | disposition home or self-care (01) ==
LOC: HO.MS 13:46
PROVIDERS: Visit Provider Surgery
PROC: (CPT 11423; principal; 2025-09-13 14:00)
DX: L72.11 Pilar cyst (principal)
CPT/HCPCS: 11423; 11421; 88304; J2004

== ENCOUNTER → 2025-09-13 13:46 | Outpatient (BNV) | payer MEDICAID, SELFPAY | PROVIDERS: Visit Provider Surgery | DX: L72.11 Pilar cyst (principal) | CPT/HCPCS: 11421; 11422 ==

== ENCOUNTER 2025-09-24 14:57 | Outpatient (AMB) | payer MEDICAID, SELFPAY ==
--- NOTE | 2025-09-24 15:10 | MHC.OFFVIS ---
Vital Signs 09/24/25 15:14 Height 5 ft 2 in BP 116/66 Blood Pressure Location Lt brachial Position Sitting Pulse 88 Intake Visit Reasons: s/p excision pilar cyst x2 Intake Note: Pt states, I'm here for follow up from my procedure. Stripper Apprentice Required: No Allergies Sulfa (Sulfonamide Antibiotics) Allergy (Verified 09/24/25 15:11) Rash Medication List - Last Reconciled 09/24/25 by Jb Almonte RN No Known Home Meds HPI HPI s/p excision pilar cyst x2: Details: Doing well. Denying pain. Denying any oozing or discharge from the area. She has no concerns PFSH Surgical History (Updated 09/25/25 @ 12:58 by Erik Luke PA-C) Hx of surgical procedure (09/13/25) No pertinent past surgical history Family History (Updated 10/14/21 @ 13:34 by REECE Caballero) Father Heart disease Mother Heart disease Social History (Updated 10/14/21 @ 13:34 by REECE Caballero) Patient Tobacco Use Status: Never used Tobacco Physical Exam Vital Signs: Last Vital Signs Pulse 88 09/24/25 15:14 BP 116/66 09/24/25 15:14 Const General: comfortable and no acute distress Orientation/consciousness: patient oriented x3 HEENT Other: To well healed excision sites on the scalp, nontender, some mild scabbing no evidence of cellulitis Resp Effort & Inspection: normal respiratory effort and able to speak in complete sentences Neuro General: patient oriented x3 Assessment & Plan Assessment & Plan (1) Hx of surgical procedure: Onset Date: 09/13/25 Comment: WLE: Pilar cyst on scalp Abundio Salas Code(s): Z98.890 - Other specified postprocedural states Category: Medical Plan 40-year-old female s/p excision of 2 Pilar cysts on her scalp with Dr. Davis on 09/13/2025 returning to the office for follow up. She has no concerns. Denying pain. Denying any bleeding or discharge from the incision sites. On exam the excision sites appear well healed, there was some mild scabbing, , advised her not to scrub this aggressively but she is okay to shower and get this wet long as she keeps the areas dry. We reviewed pathology report showing Pilar cyst. No longer requiring follow up, can follow up as needed with any concerns in the future Coding Level of Care Code Est Pt Level 3 (96210) Diagnoses Hx of surgical procedure Z98.890
[2025-09-24 15:14] VITALS: BP 116/66; PULSE 88
--- OUTSIDE RECORDS SUMMARY | 2025-09-24 16:14 | XMS_ITS | Clinical Summary ---
Author Organization [address] [place] [address] [place] [phone] Phone Care Team Providers Care Overlock Sleeve Setter Name Role Phone Wilbert Brown MD Primary Care Provider Allergies No known active allergies Active Problems No known active problems Encounters Date Type Department Care Team Description 07/11/2025 3:48 PM EDT - 07/11/2025 4:35 PM EDT Emergency [facility] Emergency [address] [place] [address] Trung Anaya MD Concussion without [...] to complete this topic Insurance [place] Care Teams Overlock Sleeve Setter Relationship Specialty Start Date End Date Wilbert Brown MD [address] [facility] [address], [phone] PCP - General 03/24/10
--- OUTSIDE RECORDS SUMMARY | 2025-09-24 16:14 | XMS_ITS | Encounter Summary ---
Author Organization [employer] Address [address] [facility] [address] [place] [address] Care Team Providers Care Personal Injury Paralegal Name Role Phone Becky Mai MD Primary Care Provider [phone] Encounter Details Date Type Department Care Team (Late st Contact Info) Description 07/25/2024 Orders Only [facility] [address], [place] [phone] Araseli Bernal FNP [address], [place] [phone] Social History Tobacco Use Types Packs/Day Years [...] on filedocumented in this encounter Care Teams Personal Injury Paralegal Relationship Specialty Start Date End Date Becky Mai MD [address] [place] [address] PCP - General Family Medicine 06/02/20 documented as of this encounter
--- OUTSIDE RECORDS SUMMARY | 2025-09-24 16:14 | XMS_ITS | Clinical Summary ---
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 Gonorrhoeae RNA, TMA, Vaginal 07/11/2025 Orders Only [facility] [address] [place] [phone] Marina Liang MD Yeast infection (Primary Dx) 07/09/2025 2:40 PM EDT Office Visit [facility] [address] [place] [phone] Marina Liang MD Vaginal odor (Primary Dx); Epidermoid cyst 07/09/2025 Travel from Last 3 Months Immunizations Immunization Administration Dates Next Due DTaP, 5 pertussis antigens 07/25/1990,,03/06/1986,1985,1985 Hep B, Adolescent or Pediatric 07/13/2000,1999,09/17/1999 Hib ([facility]) 10/14/1988 Influenza injectable quadriv alent IIV4 [...] Procedure Name Priority Date/Time Associated Diagnosis Comments GROSS AND MICROSCOPIC LEVEL 3 Routine 09/13/2025 2:31 PM EST Yeast infection CHLAMYDIA/N. GONORRHOEAE RNA, TMA, UROGENITAL Routine 07/09/2025 [...] Recently Relevant to Health Maintenance Results * Gross and Microscopic Level 3 (09/13/2025 2:31 PM EST) 09/13/2025 2:31 PM EST 09/16/2025 9:12 AM EST Narrative [facility] - 09/17/2025 1:01 PM EST ----- ------- Name: Vinita Feliciano Age/Sex: 40/F : 1985 Unit#: [id number] Attend Dr: Abundio Davis MD Re09/13/25 Status: DEP REF Location: Disch: ----- ------- SPEC : [id number] RECD: 09/16/25 STATUS: CARLOS YIMI NUM: [id number] MARJAN: 09/13/[address] [facility] [address]: Abundio Davis MD ENTERED: 09/16/25 SP TYPE: Surgical OTHR DR: [facility] ORDERED: Gross Micro L3 Diagnosis Soft tissue, scalp, excision: Pilar cyst. Clinical History Pilar cyst Microscopic Description Microscopic sections reviewed. Material Received Scalp cyst Gross Description Received in formalin labeled scalp cysts are 2 oval cystic structures. The smaller measures 1.2 x 0.9 x 0.6 cm in greatest dimension. The outer surface is white and smooth. Sectioning reveals a cavity measuring 1.0 cm in diameter that is filled with firm, yellow- white material. The cyst wall measures 0.1 cm in thickness. A medical representative cross-section is submitted for microscopic examination in cassette A1. The larger cyst measures 2.1 x 1.5 x 1.2 cm in greatest dimension. The outer surface is white and smooth with 2 defects in the cyst wall measuring 0.8 and 0.6 cm in diameter. Sectioning reveals a cavity measuring 1.5 cm in greatest dimension that is void of contents. The cyst wall measures 0.1-0.2 cm in thickness. A medical representative section is submitted in cassette A1 for a total of 2 pieces. ([facility]) IHC S/NG Disclaimer NOTE: Unless otherwise stated, all tissue is formalin-fixed and paraffin-embedded. Some or all of the immunohistochemical tests reported herein may have been developed and their performance characteristics determined by [facility]. They have not been cleared or approved by the U.S. Food and Drug Administration (FDA). However, the FDA has determined that such clearance or approval is not necessary. This laboratory is certified under the Clinical Laboratory Improvement Amendments of 1988 (CLIA) as qualified to perform high complexity clinical laboratory testing. CONTINUED ON NEXT PAGE ----- ------- Name: Vinita Feliciano Age/Sex: 40/F : 1985 Unit#: [id number] Attend Dr: Abundio Davis MD Re09/13/25 Status: DEP REF Location: [facility] Disch: ----- ------- SPEC : [id number] RECD: 09/16/25 STATUS: CARLOS GELLER NUM: [id number] MARJAN: 09/13/25-[address] [facility] [address]: Abundio Davis MD ENTERED: 09/16/25 SP TYPE: Surgical OTHR DR: [facility] ORDERED: Gross Micro L3 Copies To: [facility] [address] [place], [place] [phone] Abundio Davis MD [facility] General Surgeons [address] [place] [address] [address] [place], [place] [phone] [email or web address] hospitalAuthernative ----- ------- Signed (signature on file) Damion Bar MD 09/17/25 [id number] ----- ------- END OF REPORT us Generic External Data Provider LAB CYTOLOGY AVIVA GRAY Final Result [facility] [address] [place], [place] [phone] * (ABNORMAL) Bacterial Vaginosis Panel (07/09/2025 2:58 PM EDT) TRICHOMONAS VAGINALIS DETECTION BY PCR NOT DETECTED Not Detect [facility] BACTERIAL VAGINOSIS DETECTION BY PCR NEGATIVE Negative [facility] Comment:The BV organism targ ets [...] GROUP DETECTION BY PCR DETECTED(A) Not Detect [facility] Kaylin glab krusei PCR NOT DETECTED Not Detect [facility] Swab Vaginal structure / Unknown 07/09/2025 2:58 PM EDT 07/10/2025 11:52 AM EDT Marina Talavera MD LAB MICROBIOLOGY - [facility] ORDERABLES Final Result [facility] [address] [place] [phone] * Chlamydia/N. Gonorrhoeae RNA, TMA, Vaginal (07/09/2025 2:58 PM EDT) CT PCR NOT DETECTED Not Detect. [facility] Comment:A not detected test result [...] psychologicalconsequences. NG PCR NOT DETECTED Not Detect. [facility] Comment:A not detected test result [...] EDT Marina Talavera MD LAB MICROBIOLOGY - [facility] ORDERABLES Final Result [facility] [address] [place] [phone] * THINPREP TIS PAP (07/10/2021 4:16 PM EDT) Clinical Information: None given [facility] COMMENT SEE COMMENT [facility] ON [...] has been evaluated with computer assisted technology. [facility] Chief Credit Officer : SEE COMMENT [facility] Comment: BRITTANY SHAFER(ASCP) CT screening location: [place] [address] Infection Shift in vaginal jasiel suggestive of bacterial vaginosis. [facility] Interpretation/R esult: Negative for intraepithelial lesion or malignancy. [facility] LMP: NONE [facility]IV[facility] Prev. BX: NONE [facility] Prev. PAP: NONE [facility] SOURCE: None given [facility] Statement Of Adequacy: SEE COMMENT [facility] Comment: Satisfactory for evaluation. Endocervical/transformation zone component present. Age and/or menstrual status not provided 07/10/2021 4:16 PM EDT Becky Mai MD LAB PATHOLOGY ORDERABLES Final Result Performing Organization Address [facility] de Phone Number [facility] [address] * HPV mRNA E6/E7 REFLEX TO HPV 16, 18/45 (07/10/2021 4:16 PM EDT) HPV nRNA E6/E7 Not Detected Not Detected [facility] Comment: Methodology: Finger Lift Operator-Mediated Amplification This assay detects E6/E7 viral messenger RNA (mRNA) from 14 high-risk HPV types (16,18,31,33,35,39,45,51,52,56,58,59,66,68). The analytical performance characteristics of this assay have been determined by [employer]. The modifications have not been cleared or approved by the FDA. This assay has been validated pursuant to the CLIA regulations and is used for clinical purposes. For additional information, please refer to http://education.[facility].youwho/faq/NVM178x7 (This link if provided for information/ educational purposes only.) 07/10/2021 4:16 PM EDT eBcky Mai MD LAB CYTOLOGY ORDERABLES Final Result Performing Organization Address [facility] de Phone Number [facility] [address] [place] [address], * 3D BILATERAL DIAGN MAMMO 1 (03/20/2020 11:34 AM EDT) Anatomical Region Laterality Modality Breast Bilateral Mammography 03/20/2020 11:3 4 AM EDT Narrative 03/20/2020 11:36 AM EDT Refer to the Notes tab for result details [facility] Procedure: 3D BILATERAL DIAGN MAMMO 1 Procedure Note ProviderOrville MD - 12/25/2022 Refer to the Notes tab for result details [facility] Procedure: 3D BILATERAL DIAGN MAMMO 1 Konstantin Soto SAFETY SUPERVISOR IMG BI PROCEDURES Final Result from Last 3 Months or Most Recently Relevant to Health Maintenance Insurance C3 Care Teams Game Artist Relationship Specialty Start Date End Date Becky Mai MD [address] [place] [phone] PCP - General Family Medicine 06/02/20
== END 2025-09-24 15:23 | disposition home or self-care (01) ==
LOC: HO.HGS 14:58
PROVIDERS: PCP Internal Medicine
DX: Z98.890 Other specified postprocedural states (principal)
CPT/HCPCS: 99213

== ENCOUNTER → 2025-09-24 14:57 | Outpatient (BNVA) | payer MEDICAID, SELFPAY | PROVIDERS: PCP Internal Medicine | DX: Z48.817 Encounter for surgical aftercare following surgery on the skin and subcutaneous tissue (principal); Z98.890 Other specified postprocedural states | CPT/HCPCS: 99212 ==